=== PATIENT | female | born 1975 | race African-American/Black ===

== ENCOUNTER 2021-12-28 10:42 | Emergency (ER) | payer OTHER ==
[~2021-12-28] VITALS: Ht 162.6 cm; Wt 90.0 kg
[~2021-12-28 10:42] MED LIST: IBUP-2492 PO
[2021-12-28] MEDS ORDERED: HYDROmorphone HCL 2 MG/ML SYRINGE IM ONE (14:15)
[2021-12-28] MEDS ORDERED: FLUT16SP NASAL (14:17)
[2021-12-28] MEDS ORDERED: LEVO75 PO (14:17)
[2021-12-28] MEDS ORDERED: METF-446 PO (14:17)
[2021-12-28] MEDS ORDERED: CHOL25TA4 PO (14:17)
[2021-12-28] MEDS ORDERED: NAPR-1025 PO (14:17)
[2021-12-28] MEDS ORDERED: ATOR10TA69 PO (14:17)
[2021-12-28] MEDS ORDERED: LORA10TA7 PO (14:17)
[2021-12-28] MEDS ORDERED: CYCL-448 PO (16:26)
[2021-12-28 16:42] VITALS: BP 122/78
== END 2021-12-28 16:43 | disposition home or self-care (01) ==
LOC: EMS 11:00
DX: M54.50 Low back pain, unspecified (principal); E11.9 Type 2 diabetes mellitus without complications; Z98.890 Other specified postprocedural states
CPT/HCPCS: 99283; 72100; 81025; 96372; J1170

== ENCOUNTER 2022-06-26 02:49 | Emergency (ER) | payer OTHER ==
[~2022-06-26] VITALS: Ht 162.6 cm; Wt 86.4 kg
[~2022-06-26 02:49] MED LIST changes: +ATOR10TA69 PO; +CHOL25TA4 PO; +CYCL-448 PO; +FLUT16SP NASAL; -IBUP-2492 PO; +LEVO75 PO; +LORA10TA7 PO; +METF-446 PO; +NAPR-1025 PO
[2022-06-26 02:50] VITALS: BP 130/80
[2022-06-26 03:59] LABS: COVID AG,FIA SOURCE NASAL SWAB
[2022-06-26] MEDS ORDERED: NIRM1TAB4 PO (04:15)
== END 2022-06-26 04:57 | disposition home or self-care (01) ==
LOC: EMS 02:50
DX: U07.1 COVID-19 (principal); E11.9 Type 2 diabetes mellitus without complications; M19.90 Unspecified osteoarthritis, unspecified site; F12.90 Cannabis use, unspecified, uncomplicated; F17.210 Nicotine dependence, cigarettes, uncomplicated; Z91.040 Latex allergy status; Z88.5 Allergy status to narcotic agent; Z20.822 Contact with and (suspected) exposure to COVID-19
CPT/HCPCS: 99283